=== PATIENT | female | born 2000 | race Caucasian/White ===

== ENCOUNTER 2021-11-10 11:47 | Emergency (ER) | payer SELFPAY ==
[2021-11-10 12:01] VITALS: BP 107/60; PULSE 91; TEMP 98; BMI 38.9
[2021-11-10 12:57] LABS: HCG,QUALITATIVE URINE Positive
[2021-11-10 13:01] LABS: EPI CELLS 12 /uL (0-25.1); HYALINE CASTS 0 /uL (0-3.1); URINE APPEARANCE CLEAR; URINE BACTERIA 290 /uL (0-1359); URINE BILIRUBIN NEGATIVE (NEGATIVE); URINE COLOR YELLOW; URINE GLUCOSE (UA) NEGATIVE (NEGATIVE); URINE KETONE NEGATIVE (NEGATIVE); URINE LEUK ESTERASE NEGATIVE (NEGATIVE); URINE NITRITE NEGATIVE (NEGATIVE); URINE PROTEIN NEGATIVE (NEGATIVE); URINE UROBILINOGEN 0.2 mg/dL (0.2-1.0); URINE WBC 21 /uL (0-25.8)
[2021-11-10 17:33] LABS: URINE RBC 150.7 /uL (0-23.9); YEAST NONE SEEN (NEGATIVE)
== END 2021-11-10 14:40 | disposition home or self-care (01) ==
LOC: JER 11:47
DX: O36.4XX0 Maternal care for intrauterine death, not applicable or unspecified (principal); Z3A.01 Less than 8 weeks gestation of pregnancy
CPT/HCPCS: 36415; 76817-TC; 81003; 84702; 84703; 86850; 86900; 86901; 87086; 99284-25